=== PATIENT | male | born 1970 | race Caucasian/White ===

== ENCOUNTER 2018-09-26 19:43 | Emergency (ER) | payer OTHER ==
[2018-09-26 20:04] VITALS: BMI 24.3
--- NOTE | 2018-09-26 20:07 | PDOC ---
History of Present Illness - History of Present Illness Initial Comments: 09/26/18 21:04 The patient is a 47 year old male with a PMH of BPD, COPD who presents to the ED c/o 1 day h/o abdominal pain. Pain is left sided, sharp, constant, associated with multiple episodes of NBNB emesis. Last BM was yesterday and was watery. Not tolerating PO intake. The patient denies chest pain, shortness of breath. The patient denies dysuria/hematuria, increased urgency/frequency. The patient denies fevers/chills. Allergy: Haldol ("shingles") - as per EMR als codeine, morphine Social: 20 cigarettes daily, denies other toxic habits As per EMR, patient last evaluated in our ED in 2016 for LE pain. No prior evaluation for abdominal pain, evaluation for diarrhea in 2013 <Ronel Pina - Last Filed: 09/27/18 02:08> <Missy Unger - Last Filed: 09/27/18 02:23> - General Chief Complaint: Pain Stated Complaint: ABD PAIN Time Seen by Provider: 09/26/18 20:07 Past History - Past Medical History Asthma: Yes COPD: Yes (emphysema) CHF: Yes Diabetes: Yes (NIDDM) Psychiatric Problems: Yes (bipolar, alcoholism) - Surgical History Appendectomy: Yes - Immunization History Immunization Up to Date: No - Suicide/Smoking/Psychosocial Hx Smoking History: Current every day smoker Have you smoked in the past 12 months: No Number of Cigarettes Smoked Daily: 5 Cigars Per Day: 0 Information on smoking cessation initiated: Yes 'Breaking Loose' booklet given: 11/21/15 Hx Alcohol Use: No (pt. states he's sober x 6 months) Drug/Substance Use Hx: No Substance Use Type: None Hx Substance Use Treatment: No <Ronel Pina - Last Filed: 09/27/18 02:08> <Missy Unger - Last Filed: 09/27/18 02:23> - Past Medical History Allergies/Adverse Reactions: Allergies Allergy/AdvReac Type Severity Reaction Status Date / Time haloperidol [From Haldol] Allergy Verified 04/17/17 19:55 haloperidol lactate Allergy Verified 04/17/17 19:55 [From Haldol] codeine AdvReac Verified 04/17/17 19:55 morphine AdvReac Verified 04/17/17 19:55 Home Medications: Ambulatory Orders Albuterol Sulfate Inhaler - [Ventolin HFA Inhaler -] 1 - 2 inh PO Q4H PRN Budesonide/Formeterol Fumarate [SYMBICORT 160/4.5mcg -] 2 inh PO BID 01/02/14 Divalproex Sodium 250 mg PO BID 01/02/14 Divalproex Sodium [Divalproex Sodium ER] 500 mg PO BID 01/02/14 Olanzapine [Zyprexa] 15 mg PO BID 01/02/14 Varenicline Tartrate [Chantix] 1 mg PO BID 01/02/14 Albuterol Sulfate Inhaler - [Ventolin HFA Inhaler -] 1 - 2 inh PO Q4H 02/06/14 Budesonide/Formeterol Fumarate [SYMBICORT 160/4.5mcg -] 2 inh PO BID 02/06/14 Divalproex [Depakote -] 750 mg PO BID 02/06/14 Naltrexone HCl [Depade] 50 mg PO HS 02/06/14 Olanzapine [Zyprexa] 20 mg PO BID 02/06/14 Ibuprofen [Motrin -] 600 mg PO TID #21 tablet 02/18/14 Loratadine/Pseudoephedrine [Claritin-D 12 Hour Tab SA] 1 tab PO BID #14 tab.er.12h 02/18/14 predniSONE [Deltasone -] 10 mg PO DAILY #10 tablet 02/18/14 Review of Systems - Review of Systems Constitutional: No: Chills, Fever HEENTM: No: Recent change in vision Respiratory: No: Cough, Shortness of Breath Cardiac (ROS): No: Chest Pain, Lightheadedness, Palpitations, Syncope ABD/GI: Yes: Vomiting, Abdominal cramping. No: Constipated, Diarrhea, Nausea <Mary,Ronel - Last Filed: 09/27/18 02:08> *Physical Exam - Vital Signs Last Vital Signs Temp Pulse Resp BP Pulse Ox 98.2 F 80 20 131/85 100 09/26/18 19:59 09/26/18 19:59 09/26/18 19:59 09/26/18 19:59 09/26/18 19:59 - Physical Exam General Appearance: Yes: Nourished, Obese HEENT: positive: Normal Voice, Hearing Grossly Normal Neck: positive: Trachea midline, Supple Respiratory/Chest: positive: Lungs Clear, Normal Breath Sounds Cardiovascular: positive: S1, S2. negative: Edema Gastrointestinal/Abdominal: positive: Soft, Other (LLQ TTP w/o peritoneal sign) Musculoskeletal: positive: CVA Tenderness (L). negative: CVA Tenderness (R) Extremity: positive: Normal Capillary Refill, Normal Inspection Integumentary: positive: Normal Color, Dry, Warm Neurologic: positive: Other (Alert, oriented, poor eye contact) <MaryRonel - Last Filed: 09/27/18 02:08> - Vital Signs Last Vital Signs Temp Pulse Resp BP Pulse Ox 97.8 F 60 20 101/50 L 97 09/26/18 23:44 09/26/18 23:44 09/26/18 23:44 09/26/18 23:44 09/26/18 23:44 <Missy Unger - Last Filed: 09/27/18 02:23> Heart Score/ECG Review - ECG Impressions Comment:: 09/26/18 23:23 HR 66, normal intervals, no deviations, no DORIE/STD/TWI <Ronel Pina - Last Filed: 09/27/18 02:08> ED Treatment Course - LABORATORY CBC & Chemistry Diagram: 09/26/18 20:40 09/26/18 20:40 <MaryRonel - Last Filed: 09/27/18 02:08> - LABORATORY CBC & Chemistry Diagram: 09/26/18 20:40 09/26/18 20:40 - ADDITIONAL ORDERS Additional order review: Laboratory Results 09/26/18 09/26/18 09/26/18 20:40 20:40 20:33 Sodium 139 Potassium 4.9 Chloride 102 Carbon Dioxide 33 H Anion Gap 4 L BUN 8 Creatinine 0.9 Creat Clearance w eGFR 90.06 Random Glucose 89 Lactic Acid 0.9 Calcium 9.2 Total Bilirubin 0.2 AST 21 ALT 35 Alkaline Phosphatase 58 Creatine Kinase 245 Creatine Kinase Index 2.5 CK-MB (CK-2) 6.3 H Troponin I < 0.02 Total Protein 6.2 L Albumin 3.4 Lipase 156 Urine Color Yellow Urine Appearance Clear Urine pH 7.5 Ur Specific [place] 1.006 L Urine Protein Negative Urine Glucose (UA) Negative Urine Ketones Negative Urine Blood Negative Urine Nitrite Negative Urine Bilirubin Negative Urine Urobilinogen 0.2 Ur Leukocyte Esterase Trace Urine WBC (Auto) 1 Urine RBC (Auto) 0 Urine Casts (Auto) 0 U Epithel Cells (Auto) 0.1 Urine Bacteria (Auto) 0.2 09/26/18 20:40 RBC 4.33 MCV 98.1 H MCHC 33.7 RDW 13.6 MPV 7.7 Neutrophils % 50.2 Lymphocytes % 36.3 Monocytes % 10.5 H Eosinophils % 2.6 Basophils % 0.4 - Medications Given in the ED: ED Medications Discontinued Medications Generic Name Dose Route Start Last Admin Trade Name Freq PRN Reason Stop Dose Admin Acetaminophen 1,000 mg 09/26/18 20:35 09/26/18 21:06 Ofirmev Injection - IVPB 09/26/18 20:36 1,000 mg ONCE ONE Administration Metoclopramide HCl 10 mg 09/26/18 20:35 09/26/18 22:32 Reglan Injection - IVPUSH 09/26/18 20:36 Not Given ONCE ONE Sodium Chloride 1,000 ml 09/26/18 20:35 09/26/18 21:06 Normal Saline - IV 09/26/18 20:36 1,000 ml ONCE ONE Administration <Missy Unger - Last Filed: 09/27/18 02:23> Medical Decision Making - Medical Decision Making 09/26/18 21:06 47 year old male with LLQ abdominal pain. VS unremarkable. Frontal diagnosis: colitis, diverticulitis, gastritis/gastroenteritis. Also consider pyelonephritis/cystitis. 09/26/18 21:40 UA clean CBC, CMP unremarkable 09/26/18 21:55 Reassessed @ bedside Symptomatically improved Requesting PO intake Troponin (-) EKG non-ischemic as documented in EKG section of EMR. 09/26/18 23:21 Tolerating PO intake CTAP negative for medically emergent abdominal condition, notes bladder wall thickening, however patient denies any symptoms, unlikely to have active cystitis requiring antibiotics. Will discharge patient home with return precautions and follow up with PMD for further evaluation. I discussed the physical exam findings, ancillary test results and final diagnoses with the patient. I answered all of the patient's questions. The patient was satisfied with the care received and felt comfortable with the discharge plan and treatment plan. The patient will return to the Emergency Department with any new, persistent or worsening symptoms. <Ronel Pina - Last Filed: 09/27/18 02:08> - Medical Decision Making 09/27/18 02:23 Referring Physician: MARY COWAN Patient Name: JONA LARA PRELIMINARY REPORT FROM [facility] EXAM: CT abdomen pelvis without contrast DATE: 2018-09-26 21:03:19 IMAGES: [id number] HISTORY: LLQ pain IMPRESSION: No obstruction seen. Bladder wall appears thickened. Consider cystitis. Minimal pelvic free fluid . No free air seen <Missy Unger - Last Filed: 09/27/18 02:23> *DC/Admit/Observation/Transfer - Discharge Dispostion Decision to Admit order: No <Ronel Pina - Last Filed: 09/27/18 02:08> <Missy Unger - Last Filed: 09/27/18 02:23> Diagnosis at time of Disposition: Abdominal pain - Discharge Dispostion Disposition: HOME Condition at time of disposition: Good - Patient Instructions Printed Discharge Instructions: DI for Abdominal Pain-Adult Additional Instructions: Follow-up with your primary care doctor in the next 3 days. Your care is not complete until you are evaluated by your primary care doctor. Return to the Emergency Department for any new/worsening/concerning symptoms.
[2018-09-26] MEDS ORDERED: METOCLOPRAMIDE HCL INJECTION 10 MG/2 ML VIAL IVPUSH ONE (20:35)
[2018-09-26] MEDS ORDERED: ACETAMINOPHEN 1000 MG/100 ML VIAL (NON FORMULARY) IVPB ONE (20:35)
[2018-09-26] MEDS ORDERED: SODIUM CHLORIDE 0.9% 500 ML INFUS.BAG IV ONE (20:35)
[2018-09-26 20:47] LABS: BASO % 0.4 % (0-2.0); EOS % 2.6 % (0-4.5); HEMATOCRIT 42.4 % (35.4-49); HEMOGLOBIN 14.3 GM/dL (11.7-16.9); LYMPH % 36.3 % (8-40); MCH 33.1 pg (25.7-33.7); MCHC 33.7 g/dl (32.0-35.9); MEAN CELL VOLUME 98.1 fl (80-96); MEAN PLT VOLUME 7.7 fl (7.5-11.1); MONO % 10.5 % (3.8-10.2); NEUT % 50.2 % (42.8-82.8); PLATELET COUNT 173 K/MM3 (134-434); RBC 4.33 M/mm3 (4.00-5.60); RDW 13.6 % (11.9-15.9); WHITE BLOOD COUNT 6.7 K/mm3 (4.0-10.0)
[2018-09-26] MEDS ORDERED: METOCLOPRAMIDE HCL INJECTION 10 MG/2 ML VIAL ONE (20:59)
[2018-09-26] MEDS ORDERED: ACETAMINOPHEN INJECTION 100 ML IVPB ONE (21:00)
[2018-09-26 21:14] LABS: EPI CELLS 0.1 /HPF (0-5/HPF); PH,URINE 7.5 (5.0-8.0); URINE APPEARANCE CLEAR; URINE BACTERIA 0.2 /hpf (NEGATIVE); URINE BILIRUBIN NEGATIVE (NEGATIVE); URINE CASTS 0 /lpf (0-8); URINE COLOR YELLOW; URINE GLUCOSE (UA) NEGATIVE (NEGATIVE); URINE KETONE NEGATIVE (NEGATIVE); URINE LEUK ESTERASE TRACE (NEGATIVE); URINE NITRITE NEGATIVE (NEGATIVE); URINE PROTEIN NEGATIVE (NEGATIVE); URINE RBC 0 /hpf (0-4); URINE UROBILINOGEN 0.2 mg/dL (0.2-1.0); URINE WBC 1 /hpf (0-5)
[2018-09-26 21:18] LABS: ALBUMIN 3.4 g/dl (3.4-5.0); ALK PHOS 58 U/L (45-117); ANION GAP 4 MMOL/L (8-16); BILIRUBIN,TOTAL 0.2 mg/dL (0.2-1); BLOOD UREA NITROGEN 8 mg/dL (7-18); CALCIUM 9.2 mg/dL (8.5-10.1); CHLORIDE 102 mmol/L (98-107); CO2 33 mmol/L (21-32); CREATININE 0.9 mg/dL (0.55-1.3); GLUCOSE,RANDOM 89 mg/dL (74-106); LIPASE 156 U/L (73-393); POTASSIUM 4.9 mmol/L (3.5-5.1); SGOT/AST 21 U/L (15-37); SGPT/ALT 35 U/L (13-61); SODIUM 139 mmol/L (136-145); TOT PROT 6.2 g/dl (6.4-8.2)
[2018-09-26 23:45] VITALS: BP 101/50; PULSE 60; TEMP 97.8
--- NOTE | 2018-09-27 10:00 | EKG ---
Test Reason : Blood Pressure : / mmHG Vent. Rate : 066 BPM Atrial Rate : 066 BPM P-R Int : 136 ms QRS Dur : 080 ms QT Int : 376 ms P-R-T Axes : 046 018 067 degrees QTc Int : 394 ms NORMAL SINUS RHYTHM NORMAL ECG WHEN COMPARED WITH ECG OF 20-NOV-2015 20:23, NO SIGNIFICANT CHANGE WAS FOUND Confirmed by JONATAN ESPAÑA MD ([id number]) on 09/27/2018 10:00:01 AM Referred By: Confirmed By:JONATAN ESPAÑA MD
== END 2018-09-27 00:08 | disposition home or self-care (01) ==
LOC: JER 19:43
PROC: 3E033NZ Introduction of Analgesics, Hypnotics, Sedatives into Peripheral Vein, Percutaneous Approach (ICD-10-PCS; principal; 2018-09-26)
PROC: 3E033GC Introduction of Other Therapeutic Substance into Peripheral Vein, Percutaneous Approach (ICD-10-PCS; 2018-09-26)
DX: R10.30 Lower abdominal pain, unspecified (principal); J44.9 Chronic obstructive pulmonary disease, unspecified; I50.9 Heart failure, unspecified; E11.9 Type 2 diabetes mellitus without complications; Z79.84 Long term (current) use of oral hypoglycemic drugs; F31.9 Bipolar disorder, unspecified
CPT/HCPCS: 36415; 74176-TC; 80053; 81003; 82550; 82553; 83605; 83690; 84484; 85025; 87086; 93005; 93010; 96374; 96375; 99283-25; J0131

== ENCOUNTER 2020-06-14 18:56 | Emergency (ER) | payer OTHER ==
[2020-06-14 19:25] VITALS: BP 116/79; PULSE 90; TEMP 97.7; BMI 28.0
[2020-06-14 20:31] LABS: BASO % 0.4 % (0-2.0); EOS % 1.4 % (0-4.5); HEMATOCRIT 43.9 % (35.4-49); HEMOGLOBIN 14.8 GM/dL (11.7-16.9); LYMPH % 29.8 % (8-40); MCH 33.3 pg (25.7-33.7); MCHC 33.6 g/dl (32.0-35.9); MEAN PLT VOLUME 8.4 fl (7.5-11.1); MONO % 7.8 % (3.8-10.2); NEUT % 60.6 % (42.8-82.8); PLATELET COUNT 191 K/MM3 (134-434); RBC 4.44 M/mm3 (4.00-5.60); RDW 13.6 % (11.9-15.9); WHITE BLOOD COUNT 7.3 K/mm3 (4.0-10.0)
[2020-06-14 20:43] LABS: PROTHROMBIN TIME (PATIENT) 12.1 SEC (9.7-13.0)
[2020-06-14 20:46] LABS: ACTIVATED PTT 30.2 SECONDS (25.2-36.5)
[2020-06-14 20:49] LABS: CHLORIDE 100 mmol/L (98-107); POTASSIUM 4.1 mmol/L (3.5-5.1); SODIUM 135 mmol/L (136-145)
[2020-06-14 20:51] LABS: ALBUMIN 3.7 g/dl (3.4-5.0); ANION GAP 3 MMOL/L (8-16); BLOOD UREA NITROGEN 14.1 mg/dL (7-18); CALCIUM 9.7 mg/dL (8.5-10.1); CO2 32 mmol/L (21-32); GLUCOSE,RANDOM 82 mg/dL (74-106); MAGNESIUM 2.1 mg/dL (1.8-2.4)
[2020-06-14 20:54] LABS: SGOT/AST 24 U/L (15-37); SGPT/ALT 31 U/L (13-61)
[2020-06-14 20:56] LABS: BILIRUBIN,TOTAL 0.4 mg/dL (0.2-1); TOT PROT 6.9 g/dl (6.4-8.2)
[2020-06-14 20:57] LABS: ALK PHOS 57 U/L (45-117)
== END 2020-06-14 23:17 | disposition home or self-care (01) ==
LOC: JER 18:56
DX: R07.9 Chest pain, unspecified (principal); Z20.822 Contact with and (suspected) exposure to COVID-19
CPT/HCPCS: 36415; 71046-TC-FY; 80053; 82550; 82553; 83735; 84484; 85025; 85610; 85730; 93005; 93010; 99285-25; C9803; U0003

== ENCOUNTER 2020-09-15 22:18 | Emergency (ER) | payer OTHER ==
[2020-09-15 22:33] VITALS: BP 131/76; PULSE 108; TEMP 98.7; BMI 27.4
[2020-09-15] MEDS ORDERED: ACETAMINOPHEN 1000 MG/100 ML VIAL (NON FORMULARY) IVPB ONE (22:48)
[2020-09-15] MEDS ORDERED: methylPREDNISolone NA SUCC 125 MG/2 ML VIAL IVPB ONE (23:08)
[2020-09-15] MEDS ORDERED: ALBUTEROL SO4 2.5/IPRATROPIUM 0.5 INH SOL 3 ML VIAL.NEB. NEB ONE ×2 (23:08→23:24)
[2020-09-15] MEDS ORDERED: ACETAMINOPHEN INJECTION 100 ML IVPB ONE (23:09)
[2020-09-15] MEDS ORDERED: ALBUTEROL SO4 0.083% IH SOL 2.5 MG/3 ML VIAL.NEB. NEB ONE (23:09)
[2020-09-15] MEDS ORDERED: methylPREDNISolone NA SUCC 125 MG/2 ML VIAL ONE (23:24)
[2020-09-15 23:28] LABS: BASO % 0.4 % (0-2.0); EOS % 2.4 % (0-4.5); HEMATOCRIT 35.1 % (35.4-49); LYMPH % 27.7 % (8-40); MCHC 34.2 g/dl (32.0-35.9); MEAN CELL VOLUME 99.2 fl (80-96); MONO % 7.9 % (3.8-10.2); NEUT % 61.6 % (42.8-82.8); PLATELET COUNT 162 K/MM3 (134-434); RBC 3.54 M/mm3 (4.00-5.60); RDW 14.2 % (11.9-15.9); WHITE BLOOD COUNT 6.6 K/mm3 (4.0-10.0)
[2020-09-15 23:34] LABS: INR 0.87 (0.83-1.09); PROTHROMBIN TIME (PATIENT) 10.8 SEC (9.7-13.0)
[2020-09-15] MEDS ORDERED: FOLIC ACID INJECTION - 1 MG, THIAMINE HCL 100 MG, MULTIVIT INJECTION ADULT 10 ML in SOD... IVPB ONE (23:43)
[2020-09-15 23:52] LABS: ALBUMIN 2.9 g/dl (3.4-5.0); BLOOD UREA NITROGEN 5.8 mg/dL (7-18); CALCIUM 8.6 mg/dL (8.5-10.1)
[2020-09-15 23:55] LABS: CREATININE 0.9 mg/dL (0.55-1.3)
[2020-09-15 23:57] LABS: TOT PROT 5.7 g/dl (6.4-8.2)
[2020-09-15 23:59] LABS: BILIRUBIN,TOTAL 0.2 mg/dL (0.2-1)
== END 2020-09-16 08:21 | disposition home or self-care (01) ==
LOC: JER 22:18
PROC: 3E033NZ Introduction of Analgesics, Hypnotics, Sedatives into Peripheral Vein, Percutaneous Approach (ICD-10-PCS; principal; 2020-09-15)
PROC: 3E033GC Introduction of Other Therapeutic Substance into Peripheral Vein, Percutaneous Approach (ICD-10-PCS; 2020-09-15)
PROC: 3E0F7GC Introduction of Other Therapeutic Substance into Respiratory Tract, Via Natural or Artificial Opening (ICD-10-PCS; 2020-09-15)
DX: R06.02 Shortness of breath (principal); R07.9 Chest pain, unspecified
CPT/HCPCS: 36415; 71045-TC-FY; 80053; 82550; 83880; 84484; 85025; 85610; 93005; 93010; 99285-25; C9803; J0131; U0003; U0005

== ENCOUNTER 2021-11-12 13:46 | Inpatient (IN) | payer OTHER ==
[2021-11-12 15:00] VITALS: TEMP 97.8; BMI 24.6
[2021-11-12] MEDS ORDERED: PIPERACILLIN/TAZOB 4.5 GM 4.5 GM in DEXTROSE 5%-WATER 100 ML IVPB ONE (18:05)
[2021-11-12] MEDS ORDERED: VANCOMYCIN 1 GM in D5W (PRE-DOCKED) 1,000 MG/250 ML IVPB ONE (18:05)
[2021-11-12] MEDS ORDERED: VANCOMYCIN 1 GRAM (PRE-DOCKED) 1,000 MG/250 ML BAG IVPB ONE (18:36)
[2021-11-12 19:23] LABS: BASO % 0.5 % (0-2.0); EOS % 2.1 % (0-4.5); HEMATOCRIT 38.9 % (35.4-49); HEMOGLOBIN 13.5 GM/dL (11.7-16.9); LYMPH % 29.7 % (8-40); MCH 34.2 pg (25.7-33.7); MCHC 34.6 g/dl (32.0-35.9); MEAN CELL VOLUME 98.9 fl (80-96); MEAN PLT VOLUME 7.9 fl (7.5-11.1); MONO % 7.8 % (3.8-10.2); NEUT % 59.9 % (42.8-82.8); PLATELET COUNT 225 10^3/uL (134-434); RBC 3.93 M/mm3 (4.00-5.60); RDW 13.7 % (11.9-15.9); WHITE BLOOD COUNT 6.9 K/mm3 (4.0-10.0)
[2021-11-12 19:36] LABS: INR 1.1 (0.83-1.09); PROTHROMBIN TIME (PATIENT) 12.7 SEC (9.7-13.0)
[2021-11-12 19:39] LABS: ACTIVATED PTT 34.7 SECONDS (25.2-36.5)
[2021-11-12 19:41] LABS: CALCIUM 9.9 mg/dL (8.5-10.1)
[2021-11-12] MEDS ORDERED: PIPERACILLIN/TAZOB 4.5 GM 4.5 GM/100 ML BAG IVPB ONE (19:41)
[2021-11-12 19:42] LABS: ALBUMIN 3.8 g/dl (3.4-5.0); BLOOD UREA NITROGEN 10.9 mg/dL (7-18)
[2021-11-12 19:45] LABS: CREATININE 0.9 mg/dL (0.55-1.3)
[2021-11-12 19:46] LABS: BILIRUBIN,TOTAL 0.4 mg/dL (0.2-1); TOT PROT 6.9 g/dl (6.4-8.2)
[2021-11-12 20:20] LABS: ERYTHROCYTE SEDIMENTATION RATE 12 mm/hr (0-20)
[2021-11-12 21:23] LABS: URINE COLOR YELLOW
[2021-11-12 21:24] LABS: URINE APPEARANCE CLEAR; URINE BILIRUBIN NEGATIVE (NEGATIVE); URINE GLUCOSE (UA) NEGATIVE (NEGATIVE); URINE KETONE NEGATIVE (NEGATIVE); URINE PROTEIN NEGATIVE (NEGATIVE)
[2021-11-12 21:25] LABS: URINE LEUK ESTERASE NEGATIVE (NEGATIVE); URINE NITRITE NEGATIVE (NEGATIVE)
[2021-11-13 00:56] VITALS: BP 125/61; PULSE 59
[2021-11-13] MEDS ORDERED: ENOXAPARIN NA (PORCINE) 40 MG/0.4 ML DISP.SYRIN SQ SCH (10:00)
[2021-11-13] MEDS ORDERED: VANCOMYCIN 1 GM in D5W (PRE-DOCKED) 1,000 MG/250 ML IVPB SCH (18:00)
[2021-11-14] MEDS ORDERED: VANCOMYCIN 1 GM in D5W (PRE-DOCKED) 1,000 MG/250 ML IVPB SCH (18:00)
== END 2021-11-13 01:00 | disposition left against medical advice (07) | DRG 200 ==
LOC: JER 13:46 → JERBED 18:01
PROVIDERS: ADMIT Internal Medicine; ATTEND Internal Medicine
DX: I38 Endocarditis, valve unspecified (principal); J44.9 Chronic obstructive pulmonary disease, unspecified; E11.9 Type 2 diabetes mellitus without complications; E78.5 Hyperlipidemia, unspecified; F31.89 Other bipolar disorder; R91.1 Solitary pulmonary nodule; R00.1 Bradycardia, unspecified; R11.2 Nausea with vomiting, unspecified; F11.10 Opioid abuse, uncomplicated; F10.10 Alcohol abuse, uncomplicated; F17.200 Nicotine dependence, unspecified, uncomplicated; S21.101A Unspecified open wound of right front wall of thorax without penetration into thoracic cavity, initial encounter; S41.102A Unspecified open wound of left upper arm, initial encounter; S41.101A Unspecified open wound of right upper arm, initial encounter
CPT/HCPCS: 36415; 71046-TC-FY; 74176-TC; 80053; 81003; 84484; 85025; 85610; 85651; 85730; 86140; 87040; 87086; 93005; 93010; 99285-25; C9803-CS; U0003; U0005

== ENCOUNTER 2022-07-21 09:38 | Emergency (ER) | payer OTHER ==
[2022-07-21 09:54] VITALS: BP 113/65; PULSE 70; RESP 16; TEMP 97.7; BMI 21.3
[2022-07-21 11:39] LABS: BASO % 0.5 % (0-2.0); EOS % 2.7 % (0-4.5); HEMATOCRIT 32.8 % (35.4-49); HEMOGLOBIN 11.4 GM/dL (11.7-16.9); LYMPH % 28.2 % (8-40); MCH 34.1 pg (25.7-33.7); MCHC 34.6 g/dl (32.0-35.9); MEAN CELL VOLUME 98.4 fl (80-96); MONO % 5.8 % (3.8-10.2); NEUT % 62.8 % (42.8-82.8); PLATELET COUNT 225 10^3/uL (134-434); RBC 3.33 M/mm3 (4.00-5.60); RDW 13.8 % (11.9-15.9); WHITE BLOOD COUNT 5.8 K/mm3 (4.0-10.0)
[2022-07-21 12:05] LABS: ALBUMIN 3.5 g/dl (3.4-5.0); BLOOD UREA NITROGEN 6.8 mg/dL (7-18); CALCIUM 9.3 mg/dL (8.5-10.1)
[2022-07-21 12:08] LABS: CREATININE 0.8 mg/dL (0.55-1.3)
[2022-07-21 12:09] LABS: TOT PROT 6.1 g/dl (6.4-8.2)
[2022-07-21 12:10] LABS: BILIRUBIN,TOTAL 0.2 mg/dL (0.2-1)
== END 2022-07-21 13:46 | disposition home or self-care (01) ==
LOC: JER 09:38
DX: D64.89 Other specified anemias (principal)
CPT/HCPCS: 0241U-QW; 36415; 71046-TC-FY; 80053; 85025; 93005; 93010; 99285-25

== ENCOUNTER 2022-07-26 01:28 | Emergency (ER) | payer OTHER ==
[2022-07-26 01:42] VITALS: BP 123/65; PULSE 60; RESP 20; TEMP 97.6; BMI 21.3
[2022-07-26] MEDS ORDERED: KETOROLAC TROMETHAMINE 30 MG/1 ML VIAL IM ONE (02:52)
[2022-07-26] MEDS ORDERED: ACETAMINOPHEN 500 MG TABLET (FP) PO ONE (02:52)
[2022-07-26] MEDS ORDERED: LIDOCAINE 5% TOPICAL PATCH TP ONE (02:52)
[2022-07-26] MEDS ORDERED: KETOROLAC TROMETHAMINE 30 MG/1 ML VIAL ONE (03:01)
[2022-07-26] MEDS ORDERED: LIDOCAINE 5% TOPICAL PATCH ONE (03:01)
[2022-07-26] MEDS ORDERED: ACETAMINOPHEN 325 MG TABLET (FP) ONE (03:01)
[2022-07-26] MEDS ORDERED: IBUPROFEN 600 MG TABLET (FP) PO ONE ×2 (03:08)
[2022-07-26] MEDS ORDERED: LIDOCAINE PATCH REMOVAL MC SCH (22:00)
== END 2022-07-26 06:16 | disposition home or self-care (01) ==
LOC: JER 01:28
DX: M54.50 Low back pain, unspecified (principal)
CPT/HCPCS: 99282-25

== ENCOUNTER 2023-01-03 17:01 | Emergency (ER) | payer OTHER ==
[2023-01-03] MEDS ORDERED: ASPIRIN 81 MG CHEWABLE TABLETS PO ONE (17:29)
[2023-01-03 17:40] VITALS: BP 132/63; PULSE 88; RESP 18; TEMP 97.8; BMI 20.5
[2023-01-03] MEDS ORDERED: ASPIRIN 81 MG CHEWABLE TABLETS ONE (17:43)
[2023-01-03 17:57] LABS: BASO % 0.9 % (0-2.0); EOS % 3.3 % (0-4.5); HEMATOCRIT 37.4 % (35.4-49); HEMOGLOBIN 12.4 GM/dL (11.7-16.9); LYMPH % 22.9 % (8-40); MCH 32.4 pg (25.7-33.7); MCHC 33.1 g/dl (32.0-35.9); MEAN PLT VOLUME 8.4 fl (7.5-11.1); MONO % 5.7 % (3.8-10.2); NEUT % 67.2 % (42.8-82.8); PLATELET COUNT 259 10^3/uL (134-434); RBC 3.82 M/mm3 (4.00-5.60); RDW 14.3 % (11.9-15.9); WHITE BLOOD COUNT 9.7 K/mm3 (4.0-10.0)
[2023-01-03 18:03] LABS: INR 1.03 (0.83-1.09); PROTHROMBIN TIME (PATIENT) 11.9 SEC (9.7-13.0)
[2023-01-03 18:06] LABS: ACTIVATED PTT 30.8 SECONDS (25.2-36.5)
[2023-01-03] MEDS ORDERED: diazePAM 5 MG TABLET PO ONE (18:08)
[2023-01-03] MEDS ORDERED: diazePAM 5 MG TABLET ONE (18:10)
[2023-01-03 18:24] LABS: POTASSIUM 3.9 mmol/L (3.5-5.1)
[2023-01-03 18:26] LABS: CALCIUM 9.1 mg/dL (8.5-10.1)
[2023-01-03 18:27] LABS: ALBUMIN 3.6 g/dl (3.4-5.0); BLOOD UREA NITROGEN 9.2 mg/dL (7-18); MAGNESIUM 1.9 mg/dL (1.8-2.4)
[2023-01-03 18:30] LABS: CREATININE 1.1 mg/dL (0.55-1.3)
[2023-01-03 18:31] LABS: TOT PROT 6.6 g/dl (6.4-8.2)
[2023-01-03 18:32] LABS: BILIRUBIN,TOTAL 0.2 mg/dL (0.2-1)
== END 2023-01-03 18:49 | disposition left against medical advice (07) ==
LOC: JER 17:01
DX: R07.89 Other chest pain (principal); R20.2 Paresthesia of skin; R00.2 Palpitations
CPT/HCPCS: 36415; 80053; 82550; 82553; 83735; 84484; 85025; 85610; 85730; 93005; 93010; 99284-25

== ENCOUNTER 2023-03-08 19:10 | Observation (INO) | payer OTHER ==
[2023-03-08 19:20] VITALS: BMI 21.8
[2023-03-08 20:32] LABS: BASO % 0.8 % (0-2.0); EOS % 1.8 % (0-4.5); HEMATOCRIT 39.1 % (35.4-49); LYMPH % 24.4 % (8-40); MCH 31.9 pg (25.7-33.7); MCHC 33.2 g/dl (32.0-35.9); MEAN CELL VOLUME 96.3 fl (80-96); MEAN PLT VOLUME 7.4 fl (7.5-11.1); PLATELET COUNT 268 10^3/uL (134-434); RBC 4.06 M/mm3 (4.00-5.60); RDW 14.3 % (11.9-15.9)
[2023-03-08 20:40] LABS: INR 1.03 (0.83-1.09); PROTHROMBIN TIME (PATIENT) 11.9 SEC (9.7-13.0)
[2023-03-08 20:42] LABS: ACTIVATED PTT 31.5 SECONDS (25.2-36.5)
[2023-03-08 20:55] LABS: ALBUMIN 3.5 g/dl (3.4-5.0); CALCIUM 9.2 mg/dL (8.5-10.1)
[2023-03-08 20:56] LABS: BLOOD UREA NITROGEN 9.6 mg/dL (7-18); MAGNESIUM 2.1 mg/dL (1.8-2.4)
[2023-03-08 21:01] LABS: BILIRUBIN,TOTAL 0.3 mg/dL (0.2-1); TOT PROT 6.8 g/dl (6.4-8.2)
[2023-03-08] MEDS ORDERED: MAGNESIUM SULF 50% (8.12 MEQ/2 ML-1 GM VIAL) IVPB ONE (21:13)
[2023-03-08] MEDS ORDERED: DEXAMETHASONE SOD PHOSPHATE 10 MG/1 ML VIAL IVPUSH ONE (21:14)
[2023-03-08] MEDS ORDERED: ASPIRIN 81 MG CHEWABLE TABLETS PO ONE (21:30)
[2023-03-08] MEDS ORDERED: ASPIRIN 81 MG CHEWABLE TABLETS ONE (22:00)
[2023-03-08] MEDS ORDERED: DEXAMETHASONE SOD PHOSPHATE 10 MG/1 ML VIAL ONE (22:00)
[2023-03-08] MEDS ORDERED: MAGNESIUM 1GM/D5W - 1 GM/100 ML IVPB IVPB ONE (22:01)
[2023-03-08] MEDS ORDERED: ALBUTEROL SO4 2.5/IPRATROPIUM 0.5 INH SOL 3 ML VIAL.NEB. NEB ONE (23:28)
[2023-03-09 02:49] LABS: METHADONE, UR NEGATIVE (NEGATIVE); PHENCYCLIDINE,URINE NEGATIVE (NEGATIVE); URINE BENZODIAZEPINES NEGATIVE (NEGATIVE)
[2023-03-09 02:50] LABS: COCAINE, UR NEGATIVE (NEGATIVE); OPIATES, URI NEGATIVE (NEGATIVE); URINE BARBITURATES NEGATIVE (NEGATIVE)
[2023-03-09] MEDS ORDERED: methylPREDNISolone NA SUCC 40 MG/1 ML VIAL ONE ×2 (03:03→11:34)
[2023-03-09] MEDS: methylPREDNISolone NA SUCC 40 MG/1 ML VIAL IVPUSH SCH ×3 (03:13→15:20)
[2023-03-09 03:21] LABS: URINE AMPHETAMINES NEGATIVE (NEGATIVE)
[2023-03-09] MEDS ORDERED: ALBUTEROL SO4 2.5/IPRATROPIUM 0.5 INH SOL 3 ML VIAL.NEB. NEB ONE ×2 (07:45→13:59)
[2023-03-09] MEDS: ALBUTEROL SO4 2.5/IPRATROPIUM 0.5 INH SOL 3 ML VIAL.NEB. NEB SCH ×2 (07:49→14:01)
[2023-03-09] MEDS ORDERED: ASPIRIN COATED 81 MG TABLET.EC PO SCH (10:00)
[2023-03-09] MEDS ORDERED: BUDESONIDE/FORMETEROL FUMARATE 160/4.5 mcg INHALER IH SCH (10:00)
[2023-03-09] MEDS ORDERED: ENOXAPARIN NA (PORCINE) 40 MG/0.4 ML DISP.SYRIN SQ SCH (10:00)
[2023-03-09] MEDS ORDERED: NALTREXONE HCL 50 MG TABLET PO SCH (10:00)
[2023-03-09 11:29] VITALS: BP 91/61; PULSE 83; RESP 18; TEMP 98.1
[2023-03-09] MEDS ORDERED: ASPIRIN COATED 81 MG TABLET.EC ONE (11:34)
[2023-03-09] MEDS ORDERED: ENOXAPARIN NA (PORCINE) 40 MG/0.4 ML DISP.SYRIN SQ ONE (11:34)
[2023-03-09 11:54] LABS: HEMOGLOBIN 13.2 GM/dL (11.7-16.9); MCH 32.1 pg (25.7-33.7); MEAN CELL VOLUME 97.5 fl (80-96); MEAN PLT VOLUME 7.7 fl (7.5-11.1); PLATELET COUNT 317 10^3/uL (134-434); RDW 14.2 % (11.9-15.9)
[2023-03-09 12:18] LABS: POTASSIUM 4.7 mmol/L (3.5-5.1)
[2023-03-09 12:20] LABS: CALCIUM 9.9 mg/dL (8.5-10.1)
[2023-03-09 12:21] LABS: ALBUMIN 3.7 g/dl (3.4-5.0); BLOOD UREA NITROGEN 14.5 mg/dL (7-18); MAGNESIUM 2.2 mg/dL (1.8-2.4)
[2023-03-09 12:24] LABS: CREATININE 1.1 mg/dL (0.55-1.3)
[2023-03-09 12:25] LABS: TOT PROT 7.5 g/dl (6.4-8.2)
[2023-03-09 12:26] LABS: BILIRUBIN,TOTAL 0.3 mg/dL (0.2-1)
[2023-03-09] MEDS ORDERED: OLANZapine 10 MG TABLET PO SCH (22:00)
[2023-03-09] MEDS ORDERED: CYPROHEPTADINE HCL 4 MG TABLET PO SCH (22:00)
[2023-03-09] MEDS ORDERED: CYCLOBENZAPRINE HCL 10 MG TABLET (FP) PO SCH (22:00)
[2023-03-09] MEDS ORDERED: LITHIUM CARBONATE 450 MG TABLET.ER PO SCH (22:00)
[2023-03-09] MEDS ORDERED: MONTELUKAST NA 10 MG TABLET PO SCH (22:00)
== END 2023-03-09 16:29 | disposition left against medical advice (07) ==
LOC: JER 19:10 → JERBED 21:18 → UNDOADMOB 21:18 → INTOOBSV 21:36 → OBSVTOIN 21:36 → JERBED 03-09 10:25
PROVIDERS: ADMIT Internal Medicine; ATTEND Internal Medicine
PROC: 3E033GC Introduction of Other Therapeutic Substance into Peripheral Vein, Percutaneous Approach (ICD-10-PCS; principal; 2023-03-09)
DX: J44.1 Chronic obstructive pulmonary disease with (acute) exacerbation (principal); F10.99 Alcohol use, unspecified with unspecified alcohol-induced disorder; F31.9 Bipolar disorder, unspecified; F25.9 Schizoaffective disorder, unspecified; I69.854 Hemiplegia and hemiparesis following other cerebrovascular disease affecting left non-dominant side; I51.9 Heart disease, unspecified; Z88.5 Allergy status to narcotic agent; F17.200 Nicotine dependence, unspecified, uncomplicated; Z88.8 Allergy status to other drugs, medicaments and biological substances
CPT/HCPCS: 0241U-QW; 36415; 71046-TC-FY; 80053; 80178; 80307; 83735; 84484; 85025; 85027; 85610; 85730; 93005; 93010; 96374; 96375; 99285-25; G0378; J1100